=== PATIENT | female | born 1970 | race Two or more races ===

== ENCOUNTER 2018-11-15 14:43 | Emergency (ER) | payer MEDICAID ==
[~2018-11-15] VITALS: Ht 167.6 cm; Wt 70.0 kg
[2018-11-15] MEDS ORDERED: DILT30TA38 PO (14:48)
[2018-11-15] MEDS ORDERED: LISI2.5T47 PO (14:48)
[2018-11-15] MEDS ORDERED: HYDROCODONE/ACETAMINOPHEN 5/325MG TABLET PO ONE (16:00)
[2018-11-15 16:26] LABS: CHLORIDE 112 mEq/L (98-107); PROTHROMBIN TIME 9.9 sec (9.6-11.0)
[2018-11-15 16:32] LABS: HCG SCREEN NEGATIVE
[2018-11-15 16:33] LABS: HEMATOCRIT. 41.2 % (36.0-48.0); HEMOGLOBIN. 13.7 g/dL (12.0-16.0); MEAN CORPUSCULAR HEMOGLOBIN 29.8 pg (28.0-32.0); MEAN CORPUSCULAR VOLUME 89.5 fL (81.0-99.0); MEAN PLATELET VOLUME 9.1 fl (7.4-10.4); PLATELET 221 x1000/uL (130-400); RED BLOOD CELL COUNT 4.61 mill/uL (4.2-5.4); RED CELL DISTRIBUTION WIDTH 15.2 % (11.6-14.6)
[2018-11-15 16:44] LABS: CLARITY URINE CLEAR (CLEAR); COLOR URINE YELLOW (YELLOW); KETONES URINE NEGATIVE (NEGATIVE); LEUKOCYTE ESTERASE URINE NEGATIVE (NEGATIVE); NITRITE URINE NEGATIVE (NEGATIVE); OCCULT BLOOD URINE NEGATIVE (NEGATIVE); PH URINE 6.5 (4.5-8.0); PROTEIN URINE TRACE (NEGATIVE); SPECIFIC GRAVITY URINE 1.005 (1.005-1.030); UROBILINOGEN URINE 0.2 E.U./dL (0.2-1.0)
[2018-11-15 18:03] LABS: PLATELET ESTIMATE NORMAL
[2018-11-15 18:11] VITALS: BP 136/78
== END 2018-11-15 18:15 | disposition home or self-care (01) ==
LOC: ER 14:43
DX: S20.02XA Contusion of left breast, initial encounter (principal); I10 Essential (primary) hypertension; V49.49XA Driver injured in collision with other motor vehicles in traffic accident, initial encounter; Y93.89 Activity, other specified; Y92.89 Other specified places as the place of occurrence of the external cause; Y99.8 Other external cause status; Z98.890 Other specified postprocedural states; Z88.6 Allergy status to analgesic agent
CPT/HCPCS: 36415; 71260; 74177; 81003; 81025; 84484; 84703; 93005; 99284

== ENCOUNTER 2022-01-25 12:06 | Inpatient (IN) | payer OTHER, MEDICAID ==
[~2022-01-25] VITALS: Ht 167.6 cm; Wt 75.7 kg
[~2022-01-25 12:06] MED LIST: DILT30TA38 PO; LISI2.5T47 PO
[2022-01-25] MEDS ORDERED: ONDANSETRON HCL 4MG/2ML INJ IV STA (13:31)
[2022-01-25 14:48] LABS: BASOPHILS % 0.7 % (0.0-2.0); EOSINOPHILS % 0.3 % (0.0-5.0); HEMATOCRIT. 43.3 % (36.0-48.0); HEMOGLOBIN. 14.5 g/dL (12.0-16.0); LYMPHOCYTES % 10.5 % (20.0-50.0); MEAN CORPUSCULAR HEMOGLOBIN 30.4 pg (28.0-32.0); MEAN CORPUSCULAR VOLUME 91.1 fL (81.0-99.0); MONOCYTES % 7.3 % (2.0-8.0); NEUTROPHILS % 81.2 % (40.0-76.0); PLATELET 229 x1000/uL (130-400); RED BLOOD CELL COUNT 4.76 mill/uL (4.2-5.4); RED CELL DISTRIBUTION WIDTH 15.8 % (11.6-14.6)
[2022-01-25 14:59] LABS: INR 0.9; PROTHROMBIN TIME 9.8 sec (9.6-11.0)
[2022-01-25] MEDS ORDERED: MORPHINE SULFATE 4 MG/ML CPJ (NOT FOR IM USE) IV ONE (15:00)
[2022-01-25 15:11] LABS: CHLORIDE 96 mEq/L (98-107)
[2022-01-25] MEDS ORDERED: POTASSIUM CHLORIDE 20MEQ/PACKET PO NR (16:00)
[2022-01-25] MEDS ORDERED: SODIUM CHLORIDE 0.9% 1,000 ML IV ONE (16:00)
[2022-01-25] MEDS ORDERED: VANCOMYCIN 1G PREMIX 200 ML IV NR (16:45)
[2022-01-25] MEDS ORDERED: CEFTRIAXONE 2 G in DEXTROSE 5% WATER 50 ML IV NR (16:45)
[2022-01-25 16:55] LABS: CLARITY URINE CLEAR (CLEAR); COLOR URINE YELLOW (YELLOW); KETONES URINE TRACE (NEGATIVE); LEUKOCYTE ESTERASE URINE NEGATIVE (NEGATIVE); NITRITE URINE NEGATIVE (NEGATIVE); OCCULT BLOOD URINE 2+ (NEGATIVE); PH URINE 6.5 (4.5-8.0); PROTEIN URINE 4+ (NEGATIVE); SPECIFIC GRAVITY URINE 1.018 (1.005-1.030); UROBILINOGEN URINE 0.2 E.U./dL (0.2-1.0)
[2022-01-25] MEDS ORDERED: KETOROLAC 15MG/ML VIAL IV ONE (17:00)
[2022-01-25 17:10] LABS: *AMPHETAMINES SCREEN URINE NEGATIVE (NEGATIVE); *BARBITURATES SCREEN URINE NEGATIVE (NEGATIVE); *BENZODIAZEPINES SCREEN URINE NEGATIVE (NEGATIVE); *COCAINE SCREEN URINE NEGATIVE (NEGATIVE); CANNABINOID URINE SCREEN NEGATIVE (NEGATIVE); METHADONE URINE SCREEN NEGATIVE (NEGATIVE); OPIATES URINE SCREEN PRESUMTIVE POSITIVE (NEGATIVE); PHENCYCLIDINE URINE SCREEN NEGATIVE (NEGATIVE)
[2022-01-25] MEDS: ACYCLOVIR INJ 750 MG in DEXT 5% WATER 125 ML IV SCH (17:13)
[2022-01-25] MEDS ORDERED: DOCUSATE SODIUM 100MG CAPSULE PO PRN (19:15)
[2022-01-25] MEDS ORDERED: MAGNESIUM/ALUMINUM HYDROXIDE/SIMETHICONE 30ML UDC PO PRN (19:15)
[2022-01-25] MEDS ORDERED: ONDANSETRON HCL 4MG/2ML INJ IV PRN (19:15)
[2022-01-25] MEDS ORDERED: ACETAMINOPHEN 325MG TABLET PO PRN (19:15)
[2022-01-25] MEDS ORDERED: GUAIFENESIN 200MG/10ML SUGAR FREE UDC PO PRN (19:15)
[2022-01-25] MEDS ORDERED: NALOXONE HCL 0.4MG/ML VIAL IV PRN (19:30)
[2022-01-25] MEDS: SODIUM CHLORIDE 0.45% 1,000 ML IV SCH (19:35)
[2022-01-25] MEDS: AMLODIPINE 10MG TABLET PO SCH (19:35)
[2022-01-25] MEDS ORDERED: VANCOMYCIN 500MG PREMIX 100 ML IV SCH (20:00)
[2022-01-25 21:38] VITALS: BP 146/88
[2022-01-25 21:41] VITALS: BP 146/88
[2022-01-25] MEDS: ENOXAPARIN 40MG/0.4ML SYR SUBCUT SCH (22:06)
[2022-01-25] MEDS: TRAMADOL 50MG TABLET PO PRN (22:11)
[2022-01-26] VITALS (16 sets, daily range): BP systolic 128–174; BP diastolic 61–109
[2022-01-26] MEDS: ACYCLOVIR INJ 750 MG in DEXT 5% WATER 125 ML IV SCH ×3 (02:23→17:32)
[2022-01-26] MEDS: TRAMADOL 50MG TABLET PO PRN ×3 (02:23→22:04)
[2022-01-26] MEDS: CLONIDINE 0.1MG TABLET PO PRN (03:11)
[2022-01-26 07:03] LABS: HEMATOCRIT. 42.4 % (36.0-48.0); HEMOGLOBIN. 14.3 g/dL (12.0-16.0); MEAN CORPUSCULAR HEMOGLOBIN 30.5 pg (28.0-32.0); MEAN CORPUSCULAR VOLUME 90.5 fL (81.0-99.0); MEAN PLATELET VOLUME 8.5 fl (7.4-10.4); PLATELET 207 x1000/uL (130-400); RED BLOOD CELL COUNT 4.69 mill/uL (4.2-5.4); RED CELL DISTRIBUTION WIDTH 15.5 % (11.6-14.6)
[2022-01-26] MEDS: SODIUM CHLORIDE 0.45% 1,000 ML IV SCH ×2 (08:35→21:55)
[2022-01-26] MEDS: VANCOMYCIN 750MG PREMIX 150 ML IV SCH ×2 (09:20→21:00)
[2022-01-26] MEDS: AMLODIPINE 10MG TABLET PO SCH (09:20)
[2022-01-26 10:18] LABS: CHLORIDE 98 mEq/L (98-107)
[2022-01-26 10:47] LABS: HDL CHOLESTEROL 39 mg/dL (40-59); LDL CHOLESTEROL 170 mg/dL (5-100)
[2022-01-26] MEDS: HYDROMORPHONE HCL/PF 2MG/ML CPJ IV PRN ×3 (12:12→22:57)
[2022-01-26 12:56] LABS: PLATELET ESTIMATE NORMAL
[2022-01-26] MEDS ORDERED: CEFTRIAXONE 1 G PREMIX 50 ML IV SCH (15:00)
[2022-01-26] MEDS ORDERED: CEFTRIAXONE 2 G PREMIX 50 ML IV SCH (16:00)
[2022-01-26] MEDS ORDERED: CEFTRIAXONE 1 G PREMIX 50 ML IV ONE (16:00)
[2022-01-26] MEDS ORDERED: CEFTRIAXONE 1,000 MG in DEXTROSE 5% WATER 50 ML IV SCH (16:00)
[2022-01-26] MEDS ORDERED: CEFTRIAXONE 1,000 MG in DEXTROSE 5% WATER 50 ML IV NR (17:30)
[2022-01-26] MEDS: ENOXAPARIN 40MG/0.4ML SYR SUBCUT SCH (21:00)
[2022-01-27] VITALS (10 sets, daily range): BP systolic 124–154; BP diastolic 58–92
[2022-01-27] MEDS: ACYCLOVIR INJ 750 MG in DEXT 5% WATER 125 ML IV SCH ×3 (02:22→18:00)
[2022-01-27] MEDS: HYDROMORPHONE HCL/PF 2MG/ML CPJ IV PRN ×3 (02:23→13:19)
[2022-01-27] MEDS: CEFTRIAXONE 2 G in DEXTROSE 5% WATER 50 ML IV SCH ×2 (06:36→18:00)
[2022-01-27] MEDS: AMLODIPINE 10MG TABLET PO SCH (09:29)
[2022-01-27] MEDS: VANCOMYCIN 750MG PREMIX 150 ML IV SCH (09:29)
[2022-01-27] MEDS: SODIUM CHLORIDE 0.45% 1,000 ML IV SCH (11:15)
[2022-01-27] MEDS: TRAMADOL 50MG TABLET PO PRN ×2 (15:14→23:46)
[2022-01-27] MEDS ORDERED: HYDROMORPHONE HCL/PF 2MG/ML CPJ IV PRN (15:30)
[2022-01-27] MEDS: DIPHENHYDRAMINE 50MG/ML VIAL IV PRN (20:44)
[2022-01-27] MEDS: ENOXAPARIN 40MG/0.4ML SYR SUBCUT SCH (20:45)
[2022-01-27] MEDS: MORPHINE SULFATE 4 MG/ML CPJ (NOT FOR IM USE) IV PRN (20:45)
[2022-01-28] VITALS (12 sets, daily range): BP systolic 106–164; BP diastolic 65–109
[2022-01-28] MEDS ORDERED: VANCOMYCIN 1G PREMIX 200 ML IV SCH
[2022-01-28] MEDS: SODIUM CHLORIDE 0.45% 1,000 ML IV SCH ×2 (00:35→13:06)
[2022-01-28] MEDS: DIPHENHYDRAMINE 50MG/ML VIAL IV PRN ×2 (02:29→11:16)
[2022-01-28] MEDS: ACYCLOVIR INJ 750 MG in DEXT 5% WATER 125 ML IV SCH ×2 (02:29→09:45)
[2022-01-28] MEDS: MORPHINE SULFATE 4 MG/ML CPJ (NOT FOR IM USE) IV PRN ×4 (02:30→18:35)
[2022-01-28] MEDS: CEFTRIAXONE 2 G in DEXTROSE 5% WATER 50 ML IV SCH (06:01)
[2022-01-28] MEDS: TRAMADOL 50MG TABLET PO PRN ×3 (06:02→18:31)
[2022-01-28] MEDS: AMLODIPINE 10MG TABLET PO SCH (09:40)
[2022-01-28] MEDS: CLONIDINE 0.1MG TABLET PO PRN (11:15)
== END 2022-01-28 21:54 | disposition short-term general hospital (02) | DRG 871 ==
LOC: ER 12:06 → 5EST 16:01 → EDBEDREQSVC 16:02 → EDBEDREQTM 16:02 → EDBEDREQ 16:02 → 7WST 01-27 05:46 → 5EST 01-27 05:53
PROVIDERS: ADMIT Hospitalist; ATTEND Hospitalist
DX: A41.9 Sepsis, unspecified organism (principal); E43 Unspecified severe protein-calorie malnutrition; G03.9 Meningitis, unspecified; G92.8 Other toxic encephalopathy; E87.1 Hypo-osmolality and hyponatremia; M32.9 Systemic lupus erythematosus, unspecified; R74.01 Elevation of levels of liver transaminase levels; E88.09 Other disorders of plasma-protein metabolism, not elsewhere classified; E87.6 Hypokalemia; I10 Essential (primary) hypertension; R56.9 Unspecified convulsions; Z68.27 Body mass index [BMI] 27.0-27.9, adult; Z88.3 Allergy status to other anti-infective agents; Z86.19 Personal history of other infectious and parasitic diseases
CPT/HCPCS: 36415; 70551; 71045; 76700; 80048; 80053; 80061; 80202; 80305; 80307; 80329; 81003; 82140; 82962; 83605; 84145; 85025; 87426; 99291; J0133; J0696; J1170; J1200; J1650; J1885; J2270; J2405; J3370; J7060